=== PATIENT | female | born 1950 | race Caucasian/White ===

== ENCOUNTER 2017-03-07 12:39 | Outpatient (CLI) | payer BC | END 2017-03-07 20:52 | disposition home or self-care (01) | LOC: SMA 12:39 | PROVIDERS: ATTEND Family Medicine | DX: Z12.31 Encounter for screening mammogram for malignant neoplasm of breast (principal) | CPT/HCPCS: G0202 ==

== ENCOUNTER 2017-03-10 14:32 | Outpatient (CLI) | payer BC | END 2017-03-10 19:34 | disposition home or self-care (01) | LOC: SMA 14:32 | PROVIDERS: ATTEND Family Medicine | DX: N63.10 Unspecified lump in the right breast, unspecified quadrant (principal); R92.2 Inconclusive mammogram | CPT/HCPCS: 76642; G0206 ==